=== PATIENT | female | born 1980 | race African-American/Black ===

== ENCOUNTER 2017-01-19 06:39 | Day surgery (SDC) | payer OTHER ==
[~2017-01-19 06:39] MED LIST: Lactated Ringers 1,000 ML IV SCH
--- NOTE | 2017-01-19 07:09 | PCM.PREANE ---
Preanesthetic Assessment - Anesthesia/Transfusion/Family Hx Anesthesia History: Prior Anesthesia Without Reaction Family History of Anesthesia Reaction: No Transfusion History: No Prior Transfusion(s) - Review of Systems General: No Symptoms Pulmonary: No Symptoms Cardiovascular: No Symptoms Gastrointestinal: No symptoms Neurological: No Symptoms Other: Reports: None - Physical Assessment NPO Status Date: 01/18/17 Height: 1.68 m Weight: 72.575 kg ASA Class: 1 Mental Status: Alert & Oriented x3 Airway Class: Mallampati = 1 Dentition: Reports: Normal Dentition ROM/Head Extension: Full Lungs: Clear to auscultation, Normal respiratory effort Cardiovascular: Regular Rate, Regular Rhythm - Allergies Allergies/Adverse Reactions: Allergies Allergy/AdvReac Type Severity Reaction Status Date / Time No Known Allergies Allergy Verified 12/21/15 06:08 - Blood Blood Available: No - Anesthesia Plan Pre-Op Medication Ordered: None - Acknowledgements Anesthesia Type Planned: General Anesthesia Pt an Appropriate Candidate for the Planned Anesthesia: Yes Alternatives and Risks of Anesthesia Discussed w Pt/Guardian: Yes Pt/Guardian Understands and Agrees with Anesthesia Plan: Yes Additional Comments: plan: GA/LMA PreAnesthesia Questionnaire - Past Health History Medical/Surgical History: Denies Medical/Surgical History HEENT History: Reports: None Cardiovascular History: Reports: None Respiratory History: Reports: None Gastrointestinal History: Reports: None Genitourinary History: Reports: None 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 Neurological History: Reports: None Psychiatric History: Reports: None Endocrine/Metabolic History: Reports: None Dermatologic History: Reports: None - Infectious Disease History Infectious Disease History: Reports: None - Past Surgical History Head Surgeries/Procedures: Reports: None HEENT Surgical History: Reports: None Cardiovascular Surgical History: Reports: None Respiratory Surgical History: Reports: None Female Surgical History: Reports: None Endocrine Surgical History: Reports: None Neurological Surgical History: Reports: None Musculoskeletal Surgical History: Reports: None Dermatological Surgical History: Reports: None - SUBSTANCE USE Smoking Status *Q: Never Smoker Recreational Drug Use History: No - HOME MEDS Home Medications: Home Meds . [No Known Home Meds] 12/31/16 [History] - CURRENT (IN HOUSE) MEDS Current Meds: Current Medications Hydrocodone Bitart/Acetaminophen ([place] 325-5 Mg) 1 - 2 tab PO Q4H PRN PRN Reason: Pain Lactated Ringer's (Ringers, Lactated) 1,000 mls @ 100 mls/hr IV ASDIRECTED BLAIR Cefazolin Sodium/Dextrose 1 gm (/ Premix) 50 mls @ 100 mls/hr IV ONCALL BLAIR
[2017-01-19] MEDS ORDERED: Lidocaine 1% 50 ML MDV ONE (07:20)
[2017-01-19] MEDS ORDERED: fentaNYL 100 MCG/2 ML SDV ONE ×2 (07:41→08:29)
[2017-01-19] MEDS ORDERED: Lidocaine 2% 5 ML SDV ONE (07:41)
[2017-01-19] MEDS ORDERED: Midazolam 1 MG/ML 2 ML SDV ONE (07:41)
[2017-01-19] MEDS ORDERED: Propofol 200 MG/20 ML SDV ONE (07:41)
[2017-01-19] MEDS ORDERED: ceFAZolin 1 GM in Premix Bag 1 BAG IV SCH (08:00)
[2017-01-19] MEDS ORDERED: fentaNYL 100 MCG/2 ML SDV IVPUSH PRN (08:32)
--- NOTE | 2017-01-19 08:46 | PCM.OPNOTE ---
- General Post-Op/Procedure Note Date of Surgery/Procedure: 01/19/17 Operative Procedure(s): L knee scope with chondroplasty trochlea and patella Post-Op Diagnosis: chondromalacia left knee PFJ Anesthesia Technique: General LMA Primary Surgeon: Lucie Maier Allied Health Instructor: Zuleika Stoll in mLs: 5 Condition: Good Free Text/Narrative:: tt=14 min #[id number]
[2017-01-19] MEDS: Acetaminophen/HYDROcodone 325-5 MG Tab PO PRN ×2 (10:01→11:10)
--- NOTE | 2017-01-19 10:11 | PCM.POSTAN ---
POST ANESTHESIA ASSESSMENT - MENTAL STATUS Mental Status: alert, oriented - RESPIRATORY Respiratory Status: respiratory rate WNL, airway patent - CARDIOVASCULAR CV Status: pulse rate WNL, blood pressure stable - GASTROINTESTINAL GI Status: no symptoms - POST OP HYDRATION Hydration Status: adequate & stable
[2017-01-19] MEDS ORDERED: Ondansetron 4 MG/2 ML SDV ONE (10:53)
[2017-01-19] MEDS ORDERED: Ketorolac 30 MG/ML SDV ONE (10:53)
--- NOTE | 2017-01-19 11:21 | PCM48HPAN ---
Post Anesthesia Note - EVALUATION WITHIN 48HRS OF ANESTHETIC Vital Signs in Normal Range: Yes Patient Participated in Evaluation: Yes Respiratory Function Stable: Yes Airway Patent: Yes Cardiovascular Function Stable: Yes Hydration Status Stable: Yes Pain Control Satisfactory: Yes Nausea and Vomiting Control Satisfactory: Yes Mental Status Recovered: Yes
[2017-01-19 13:41] VITALS: BP 102/64
--- NOTE | 2017-01-19 17:47 | OR ---
SURGEON: Lucie Maier MD DATE OF PROCEDURE: 01/19/2017 PREOPERATIVE DIAGNOSIS: Left knee patellar chondromalacia. POSTOPERATIVE DIAGNOSIS: Left knee patellar chondromalacia. PROCEDURE: Left knee arthroscopy with chondroplasty of the patella and trochlear groove. ASSISTANTS: 1. Elizabeth Merritt PA-C. 2. Zuleika Stoll PA-C. ANESTHESIA: General. ESTIMATED BLOOD LOSS: 5 mL. TOURNIQUET TIME: 14 minutes. COMPLICATIONS: None. DVT PROPHYLAXIS: Not indicated. IMPLANTS USED: None. BRIEF HISTORY: Karthik is a 36-year-old female, who has had complaint of persistent left knee pain and effusions. She did respond initially to a diagnostic/therapeutic injection, however, her swelling recurred. Due to her lack of response to conservative treatment, I did recommend surgical intervention. The risks and goals of procedure were discussed with the patient and were documented preoperatively. She agreed to proceed. DESCRIPTION OF PROCEDURE: The patient was properly identified and brought to the operating room. She was transferred from the OR cart and placed on the operating table in supine position. General anesthesia was administered. After adequate anesthesia was obtained, a well-padded tourniquet was applied to the left lower extremity. The left lower extremity was then prepped in standard fashion using ChloraPrep solution. It was then sterilely draped. A time-out was performed to ensure correct site and procedure. Preoperative antibiotics were given. The surgical site had been marked preoperatively. An Esmarch was used to exsanguinate the left lower extremity and the tourniquet was inflated to 250 mmHg. A lateral portal arthrotomy was established. Blunt trocar and cannula were introduced into the suprapatellar pouch. Camera, inflow, and outflow were assembled. No significant synovitis was noted. The patellofemoral joint was then visualized. Degenerative changes were noted on the undersurface of the patella as well as the trochlear groove. The patella appeared to track centrally. I then extended down the lateral and medial gutter. No loose bodies were identified. I then entered the medial compartment. A medial portal arthrotomy was established. A blunt probe was inserted. The meniscus was extensively probed. No instability or tears were noted. The joint surfaces appeared pristine. I then entered the notch. Both the ACL and PCL were visualized and probed and found to be intact. I finally entered the lateral compartment. The meniscus was again probed and no tears were noted. She had a small area of grade 2 chondromalacia along the anterior medial aspect of the lateral tibial plateau. The lateral femoral condyle showed no degenerative findings. I then re-entered the notch. There was an area of grade 2 to grade 3 chondromalacia along the inferior pole of the patella laterally. No loose fragments were noted here. There was an area with loose fragments located over the superior medial aspect of the patella, which was treated with chondroplasty. The trochlear groove was also visualized. The area of wear measured approximately 7 mm x 15 mm. There were loose cartilaginous fragments. A 4.0 shaver was used to debride this area. It was again probed and the remainder of the cartilage appeared stable. The central portion of the trochlear groove showed grade 3 degenerative findings. Instruments were then removed from the knee. The portal sites were closed with 3-0 nylon. Lidocaine 1% was injected along the portal tracts. Xeroform gauze was placed over the wound and a bulky dressing was applied. The tourniquet was then deflated. She was awakened from her anesthetic and transferred back to the operating room cart. She was brought to recovery room in stable condition. All needle and sponge counts were correct. SHANIQUA / KEVON /[id number]
== END 2017-01-19 12:00 | disposition home or self-care (01) ==
LOC: MW.SDS 06:39
PROVIDERS: ATTEND Orthopaedic Surgery
DX: M22.42 Chondromalacia patellae, left knee (principal); M25.462 Effusion, left knee
CPT/HCPCS: 29877; 81025; A9270; J0690; J1885; J2250; J2405; J3010; J7120; 01400; 88304; J2704

== ENCOUNTER 2017-09-18 08:59 | Emergency (ER) | payer OTHER ==
[2017-09-18 09:10] VITALS: BP 104/69
[2017-09-18] MEDS ORDERED: Sodium Chloride 0.9% 10 ML Syringe FLUSH PRN (09:24)
[2017-09-18] MEDS ORDERED: Sodium Chloride 0.9% 2.5 ML Syringe FLUSH PRN (09:24)
--- NOTE | 2017-09-18 09:24 | EDM.PDOC ---
ED HPI GENERAL MEDICAL PROBLEM - General Chief Complaint: Genitourinary Problem Stated Complaint: DIZZY Time Seen by Provider: 09/18/17 09:20 Source of Information: Reports: Patient History Limitations: Reports: No Limitations - History of Present Illness INITIAL COMMENTS - FREE TEXT/NARRATIVE: History of present illness: []Patient has been excessively thirsty and urinating more than normal for the past 3 days. She has been complaining of dizziness and feels very weak. She denies any pain, fevers, nausea or vomiting. Patient is not diabetic and has no family history of diabetes. Review of systems: As per history of present illness and below otherwise all systems reviewed and negative. Past medical history: As per history of present illness and as reviewed below otherwise noncontributory. Surgical history: As per history of present illness and as reviewed below otherwise noncontributory. Social history: No reported history of drug or alcohol abuse. Family history: As per history of present illness and as reviewed below otherwise noncontributory. Physical exam: General: Well developed, well nourished in NAD HEENT: Atraumatic, normocephalic, pupils reactive, negative for conjunctival pallor or scleral icterus, mucous membranes moist, throat clear, neck supple, nontender, trachea midline. Lungs: Clear to auscultation, breath sounds equal bilaterally, chest nontender. Heart: S1S2, regular, negative for clicks, rubs, or JVD. Abdomen: Soft, nondistended, nontender. Negative for masses or hepatosplenomegaly. Negative for costovertebral tenderness. Pelvis: Stable nontender. Genitourinary: Deferred. Rectal: Deferred. Extremities: Atraumatic, negative for cords or calf pain. Neurovascular unremarkable. Neuro: Awake, alert, oriented. Cranial nerves II through XII unremarkable. Cerebellum unremarkable. Motor and sensory unremarkable throughout. Exam nonfocal. Diagnostics: []Labs and urine all negative Therapeutics: []Meclizine given with relief of symptoms Impression: []Polydipsia, polyuria, dizziness unknown etiology Plan: []Follow-up primary care further diabetic testing Definitive disposition and diagnosis as appropriate pending reevaluation and review of above. - Related Data Allergies Allergy/AdvReac Type Severity Reaction Status Date / Time No Known Allergies Allergy Verified 09/18/17 09:10 Home Meds: Home Meds . 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 Musculoskeletal History: Reports: Arthritis Neurological History: Reports: None Psychiatric History: Reports: None Endocrine/Metabolic History: Reports: None Dermatologic History: Reports: None - Infectious Disease History Infectious Disease History: Reports: Chicken Pox - Past Surgical History Head Surgeries/Procedures: Reports: None HEENT Surgical History: Reports: None Cardiovascular Surgical History: Reports: None Respiratory Surgical History: Reports: None Female Surgical History: Reports: None Endocrine Surgical History: Reports: None Neurological Surgical History: Reports: None Musculoskeletal Surgical History: Reports: None Dermatological Surgical History: Reports: None Social & Family History - Family History Cardiac: Reports: None Respiratory: Reports: None - Tobacco Use Smoking Status *Q: Never Smoker - Caffeine Use Caffeine Use: Reports: Soda - Recreational Drug Use Recreational Drug Use: No Drug Use in Last 12 Months: No ED ROS GENERAL - Review of Systems Review Of Systems: See Below (See history of present illness) ED EXAM, GENERAL - Physical Exam Exam: See Below (See history of present illness) Course - Vital Signs Last Recorded V/S: Last Vital Signs Temp 97.9 F 09/18/17 09:08 Pulse 65 09/18/17 09:08 Resp 12 09/18/17 09:08 BP 104/69 09/18/17 09:08 Pulse Ox 100 09/18/17 09:08 - Orders/Labs/Meds Orders: Active Orders 24 hr Category Date Time Status Sodium Chloride 0.9% [Saline Flush] Med 09/18/17 09:24 Active 10 ml FLUSH ASDIRECTED PRN Sodium Chloride 0.9% [Saline Flush] Med 09/18/17 09:24 Active 2.5 ml FLUSH ASDIRECTED PRN Saline Lock Insert [OM.PC] Stat Oth 09/18/17 09:24 Ordered Medication Orders Sodium Chloride (Saline Flush) 10 ml FLUSH ASDIRECTED PRN PRN Reason: Keep Vein Open Sodium Chloride (Saline Flush) 2.5 ml FLUSH ASDIRECTED PRN PRN Reason: Keep Vein Open Labs: Laboratory Tests 09/18/17 09/18/17 09/18/17 Range/Units 09:12 09:12 09:36 WBC 3.65 L (4.0-11.0) K/uL RBC 4.17 L (4.30-5.90) M/uL Hgb 12.7 (12.0-16.0) g/dL Hct 37.7 (36.0-46.0) % MCV 90.4 (80.0-98.0) fL MCH 30.5 (27.0-32.0) pg MCHC 33.7 (31.0-37.0) g/dL RDW Std Deviation 41.5 (28.0-62.0) fl RDW Coeff of [place]ette 13 (11.0-15.0) % Plt Count 173 (150-400) K/uL MPV 10.60 (7.40-12.00) fL Neut % (Auto) 37.2 L (48.0-80.0) % Lymph % (Auto) 52.1 H (16.0-40.0) % [place] % (Auto) 9.9 (0.0-15.0) % Eos % (Auto) 0.5 (0.0-7.0) % Baso % (Auto) 0.3 (0.0-1.5) % Neut # (Auto) 1.4 (1.4-5.7) K/uL Lymph # (Auto) 1.9 (0.6-2.4) K/uL [place] # (Auto) 0.4 (0.0-0.8) K/uL Eos # (Auto) 0.0 (0.0-0.7) K/uL Baso # (Auto) 0.0 (0.0-0.1) K/uL Nucleated RBC % 0.0 /100WBC Nucleated RBCs # 0 K/uL Sodium (136-146) mmol/L Potassium (3.5-5.1) mmol/L Chloride (98-110) mmol/L Carbon Dioxide (21-31) mmol/L BUN (6.0-23.0) mg/dL Creatinine (0.6-1.5) mg/dL Est Cr Clr Drug Dosing mL/min Estimated GFR (MDRD) ml/min Glucose (60-110) mg/dL Calcium (8.8-10.8) mg/dL Total Bilirubin (0.1-1.5) mg/dL AST (5-40) IU/L ALT (8-54) IU/L Alkaline Phosphatase (40-150) Total Protein (6.0-8.0) g/dL Albumin (3.5-5.0) g/dL Globulin (2.0-3.5) g/dL Albumin/Globulin Ratio (1.3-2.8) Urine Color YELLOW Urine Appearance CLEAR Urine pH 7.5 (5.0-8.0) Ur Specific [place] 1.010 (1.001-1.035) Urine Protein NEGATIVE (NEGATIVE) mg/dL Urine Glucose (UA) NEGATIVE (NEGATIVE) mg/dL Urine Ketones NEGATIVE (NEGATIVE) mg/dL Urine Occult Blood TRACE-INTACT (NEGATIVE) Urine Nitrite NEGATIVE (NEGATIVE) Urine Bilirubin NEGATIVE (NEGATIVE) Urine Urobilinogen 0.2 (<2.0) EU/dL Ur Leukocyte Esterase NEGATIVE (NEGATIVE) Urine RBC 0-1 (0-2/HPF) Urine WBC 0-1 (0-5/HPF) Ur Epithelial Cells RARE (NONE-FEW) Urine Bacteria RARE (NEGATIVE) Urine HCG, Qual NEGATIVE (NEGATIVE) 09/18/17 Range/Units 09:36 WBC (4.0-11.0) K/uL RBC (4.30-5.90) M/uL Hgb (12.0-16.0) g/dL Hct (36.0-46.0) % MCV (80.0-98.0) fL MCH (27.0-32.0) pg MCHC (31.0-37.0) g/dL RDW Std Deviation (28.0-62.0) fl RDW Coeff of Antonette (11.0-15.0) % Plt Count (150-400) K/uL MPV (7.40-12.00) fL Neut % (Auto) (48.0-80.0) % Lymph % (Auto) (16.0-40.0) % [place] % (Auto) (0.0-15.0) % Eos % (Auto) (0.0-7.0) % Baso % (Auto) (0.0-1.5) % Neut # (Auto) (1.4-5.7) K/uL Lymph # (Auto) (0.6-2.4) K/uL [place] # (Auto) (0.0-0.8) K/uL Eos # (Auto) (0.0-0.7) K/uL Baso # (Auto) (0.0-0.1) K/uL Nucleated RBC % /100WBC Nucleated RBCs # K/uL Sodium 139 (136-146) mmol/L Potassium 3.5 (3.5-5.1) mmol/L Chloride 106 (98-110) mmol/L Carbon Dioxide 27 (21-31) mmol/L BUN 8 (6.0-23.0) mg/dL Creatinine 0.8 (0.6-1.5) mg/dL Est Cr Clr Drug Dosing 91.88 mL/min Estimated GFR (MDRD) > 60.0 ml/min Glucose 74 (60-110) mg/dL Calcium 8.3 L (8.8-10.8) mg/dL Total Bilirubin 1.0 (0.1-1.5) mg/dL AST 20 (5-40) IU/L ALT 19 (8-54) IU/L Alkaline Phosphatase 39 L (40-150) Total Protein 7.0 (6.0-8.0) g/dL Albumin 4.1 (3.5-5.0) g/dL Globulin 2.9 (2.0-3.5) g/dL Albumin/Globulin Ratio 1.4 (1.3-2.8) Urine Color Urine Appearance Urine pH (5.0-8.0) Ur Specific [place] (1.001-1.035) Urine Protein (NEGATIVE) mg/dL Urine Glucose (UA) (NEGATIVE) mg/dL Urine Ketones (NEGATIVE) mg/dL Urine Occult Blood (NEGATIVE) Urine Nitrite (NEGATIVE) Urine Bilirubin (NEGATIVE) Urine Urobilinogen (<2.0) EU/dL Ur Leukocyte Esterase (NEGATIVE) Urine RBC (0-2/HPF) Urine WBC (0-5/HPF) Ur Epithelial Cells (NONE-FEW) Urine Bacteria (NEGATIVE) Urine HCG, Qual (NEGATIVE) Meds: Medications Generic Name Dose Route Start Last Admin Trade Name Freq PRN Reason Stop Dose Admin Sodium Chloride 10 ml 09/18/17 09:24 Saline Flush FLUSH ASDIRECTED PRN Keep Vein Open Sodium Chloride 2.5 ml 09/18/17 09:24 Saline Flush FLUSH ASDIRECTED PRN Keep Vein Open Discontinued Medications Generic Name Dose Route Start Last Admin Trade Name Evelyn PRN Reason Stop Dose Admin Meclizine HCl 25 mg 09/18/17 09:25 09/18/17 09:50 Antivert PO 09/18/17 09:26 25 mg ONETIME ONE Administration Departure - Departure Time of Disposition: 10:26 Disposition: Home, Self-Care 01 Condition: Good Clinical Impression: Polyuria, Dizziness - Discharge Information Referrals: PCP,None [Primary Care Provider] - Katiuska Pineda MD [Resident] - Forms: ED Department Discharge Additional Instructions: The following information is given to patients seen in the emergency department who are being discharged to home. This information is to outline your options for follow-up care. We provide all patients seen in our emergency department with a follow-up referral. The need for follow-up, as well as the timing and circumstances, are variable depending upon the specifics of your emergency department visit. If you don't have a primary care physician on staff, we will provide you with a referral. We always advise you to contact your personal physician following an emergency department visit to inform them of the circumstance of the visit and for follow-up with them and/or the need for any referrals to a consulting specialist. The emergency department will also refer you to a specialist when appropriate. This referral assures that you have the opportunity for follow-up care with a specialist. All of these measure are taken in an effort to provide you with optimal care, which includes your follow-up. Under all circumstances we always encourage you to contact your private physician who remains a resource for coordinating your care. When calling for follow-up care, please make the office aware that this follow-up is from your recent emergency room visit. If for any reason you are refused follow-up, please contact the [facility] Emergency Department at and asked to speak to the emergency department charge nurse. Follow-up with primary care - My Orders Last 24 Hours: My Active Orders 09/18/17 09:24 Sodium Chloride 0.9% [Saline Flush] 10 ml FLUSH ASDIRECTED PRN Sodium Chloride 0.9% [Saline Flush] 2.5 ml FLUSH ASDIRECTED PRN Saline Lock Insert [OM.PC] Stat - Assessment/Plan Last 24 Hours: My Active Orders 09/18/17 09:24 Sodium Chloride 0.9% [Saline Flush] 10 ml FLUSH ASDIRECTED PRN Sodium Chloride 0.9% [Saline Flush] 2.5 ml FLUSH ASDIRECTED PRN Saline Lock Insert [OM.PC] Stat
[2017-09-18] MEDS ORDERED: Meclizine 25 MG Tab PO ONE (09:25)
[2017-09-18 10:12] LABS: CHLORIDE,CL 106 mmol/L (98-110); SODIUM,NA 139 mmol/L (136-146)
== END 2017-09-18 11:00 | disposition home or self-care (01) ==
LOC: MW.ED 08:59
DX: R42 Dizziness and giddiness (principal); R35.8 Other polyuria; R63.1 Polydipsia
CPT/HCPCS: 36415; 80053; 81001; 81025; 85025; 99284; A9270; 99283

== ENCOUNTER 2020-04-24 16:56 | Emergency (ER) | payer OTHER ==
[2020-04-24 17:45] LABS: BLOOD UREA NITROGEN,BUN 10 mg/dL (7.0-18.0); CARBON DIOXIDE,CO2 24.5 mmol/L (21.0-32.0); CHLORIDE,CL 104 mmol/L (98-107); GLUCOSE RANDOM 89 mg/dL (74-106); POTASSIUM,K 3.4 mmol/L (3.5-5.1); SODIUM,NA 139 mmol/L (136-145)
--- NOTE | 2020-04-24 18:21 | EDM.PDOC ---
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 Patient's last menstrual period was March 16, 2020 and is approximately 5 weeks . Over the past 2 weeks she has had vaginal bleeding which has fluctuated in intensity. She has been seeing her [facility] W[facility]ER OPERATOR, particularly today she was seen in the clinic. The provider was doing a bedside ultrasound and could not rule out an ectopic . They recommended she come to the emergency room for evaluation. Patient states that she has had intermittent vaginal bleeding, occasionally passing clots. Nothing in particular was worse today that prompted her to come to the emergency room/clinic for evaluation other than the bleeding has not stopped. She has had some generalized abdominal pain, states location alternates from left/right/midline. She also has some low back pain. 5, para 2. She had a miscarriage approximately a year ago at 5 to 6 weeks. Patient denies any fever, chills, headache, change in vision, syncope or near syncope. Denies any chest pain, back pain, shortness of breath or cough. Denies any injury, trauma or falls. Patient has been eating and drinking appropriately. The women's health clinic provider states that she had done a bedside ultrasound. CBC was normal. Waiting on the quantitative hCG. She also did a pelvic exam which she reports left adnexal discomfort, positive cervical motion tenderness and some malodorous discharge from the cervix. The provider did do a gonorrhea and chlamydia screening, these are send outs and will not have results for few days. Review of systems: As per history of present illness and below otherwise all systems reviewed and negative. Past medical history: As per history of present illness and as reviewed below otherwise noncontributory. Surgical history: As per history of present illness and as reviewed below otherwise noncontributory. Social history: See social history for further information Family history: As per history of present illness and as reviewed below otherwise noncontributory. Physical exam: General: Well developed and well nourished. Alert and orientated x 3. Nontoxic i n appearance and in no acute distress. Vital signs are stable and have been reviewed by me. Nursing notes were reviewed. HEENT: Atraumatic, normocephalic, pupils equal and reactive bilaterally, negat alexandrea for conjunctival pallor or scleral icterus, mucous membranes moist, TMs normal bilaterally, throat clear, neck supple, nontender, trachea midline. No drooling or trismus noted. No meningeal signs. No hot potato voice noted. Lungs: Clear to auscultation, breath sounds equal bilaterally, chest nontender. Normal work of breathing, no accessory muscles used. Heart: S1S2, regular rate and rhythm without overt murmur Abdomen: Soft, nondistended, nontender. Negative for masses or hepatosplenomegaly. Negative for costovertebral tenderness. Pelvis: Stable nontender. Skin: Intact, warm, dry. No lesions or rashes noted. Hematologic: No petechiae or purpra. Mucosa appropriate color and normal nail bed color and refill. Extremities: Atraumatic, moves all extremities per self without difficulty or deficits, negative for cords or calf pain. Neurovascular unremarkable. Neuro: Awake, alert, oriented. Cranial nerves II through XII unremarkable. Cerebellum unremarkable. Motor and sensory unremarkable throughout. Exam nonfocal. Psychiatric: Mood and affect are appropriate. Normal thought process. Answering questions appropriately. Notes: Please note that blood was drawn at the clinic, several of the labs were added on as this was just recently drawn, to avoid a duplicate charge for the patient. I did offer to give the patient something for pain at this time, rating it 9/10. She declines. Vital signs are stable. Ultrasound shows an intrauterine gestational sac with a faint yolk sac. Estimated gestational size is 7 weeks and 2 days. No fetus is visualized at this time. Viability cannot be confirmed at this time. I did call TASHA Shields, who is convinced this is a blighted ovum, he has no concern for a tubal at this time. He would like the patient's quantitative hCG repeated on and would like to see the patient back on . Initially he did want Cytotec for this patient, but will wait to this prescribed by him when he see's her in the clinic. Patient's quantitative hCG is 39,081. She does have a urinary tract infection with +3 bacteria and positive nitrates. We will give Cipro. We discussed signs and symptoms that would prompt them to return to the Emergency Department. Medication, follow up and supportive care measures were reviewed and discussed. Voices understanding and is agreeable to plan of care. Denies any further questions or concerns at this time. Diagnostics: CBC, CMP, UA, quantitative hCG, transvaginal ultrasound, AB/RH Therapeutics: Cipro Prescription: Cipro, Mccormick, outpatient quantitative hCG Impression: Threatened UTI Plan: 1. Your lab work shows a bladder infection, please take the antibiotic as prescribed. Today's quantitative hCG was 39,081. This lab needs to be redrawn on (04/26/20) in outpatient lab to see if this number is going down. Call Sawyer's office tomorrow to set up a follow up appointment for re- evaluation. 2. Pelvic rest until cleared by your OBGYN (no tampons, sex, etc...) 3. Tylenol as needed for pain management. Mccormick for moderate to severe pain. This medication may cause drowsiness so do not take it while driving or needing to be functioning outside of the house. 4. As we discussed if your symptoms become worse (increased abdominal pain, heavier vaginal bleeding) or new symptoms develop (lightheaded, dizziness, fever/chills) please return to the emergency room for reevaluation. Definitive disposition and diagnosis as appropriate pending reevaluation and review of above. pelvic area/lower back Pain Score (Numeric/FACES): 10 - Related Data Allergies Allergy/AdvReac Type Severity Reaction Status Date / Time No Known Allergies Allergy Verified 04/24/20 17:06 Home Meds: Home Meds Ciprofloxacin [Ciprofloxacin HCl] 500 mg PO BID 5 Days #10 tab 04/24/20 [Rx] Hydrocodone/Acetaminophen [Hydrocodone-Acetamin 5-325 mg] 1 each PO Q4HR #10 t ablet 04/24/20 [Rx] Past Medical History - Past Health History Medical/Surgical History: Denies Medical/Surgical History HEENT History: Reports: None Cardiovascular History: Reports: None Respiratory History: Reports: None Gastrointestinal History: Reports: None Genitourinary History: Reports: None 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: Reports: 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 Musculoskeletal History: Reports: Arthritis Neurological History: Reports: None Psychiatric History: Reports: None Endocrine/Metabolic History: Reports: None Dermatologic History: Reports: None - Infectious Disease History Infectious Disease History: Reports: Chicken Pox - Past Surgical History Head Surgeries/Procedures: Reports: None HEENT Surgical History: Reports: None Cardiovascular Surgical History: Reports: None Respiratory Surgical History: Reports: None Female Surgical History: Reports: None Endocrine Surgical History: Reports: None Neurological Surgical History: Reports: None Musculoskeletal Surgical History: Reports: None, Other (See Below) Other Musculoskeletal Surgeries/Procedures:: left knee surgery Dermatological Surgical History: Reports: None Social & Family History - Family History Cardiac: Reports: None Respiratory: Reports: None - Tobacco Use Smoking Status *Q: Never Smoker - Caffeine Use Caffeine Use: Reports: None - Recreational Drug Use Recreational Drug Use: No ED ROS GENERAL - Review of Systems Review Of Systems: Comprehensive ROS is negative, except as noted in HPI. ED EXAM - Physical Exam Exam: See Below (See dictation) Course - Vital Signs Last Recorded V/S: Last Vital Signs Temp 98.7 F 04/24/20 17:06 Pulse 78 04/24/20 17:06 Resp 16 04/24/20 17:06 BP 121/76 04/24/20 17:06 Pulse Ox 100 04/24/20 17:06 - Orders/Labs/Meds Labs: Laboratory Tests 04/24/20 04/24/20 04/24/20 Range/Units 17:13 17:17 18:13 INR 1.05 Sodium 139 (136-145) mmol/L Potassium 3.4 L (3.5-5.1) mmol/L Chloride 104 (98-107) mmol/L Carbon Dioxide 24.5 (21.0-32.0) mmol/L BUN 10 (7.0-18.0) mg/dL Creatinine 0.8 (0.6-1.0) mg/dL Est Cr Clr Drug Dosing TNP Estimated GFR (MDRD) > 60.0 ml/min Glucose 89 (74-106) mg/dL Calcium 8.4 L (8.5-10.1) mg/dL Total Bilirubin 0.8 (0.2-1.0) mg/dL AST 15 (15-37) IU/L ALT 16 (14-63) IU/L Alkaline Phosphatase 34 L (46-116) U/L Total Protein 6.3 L (6.4-8.2) g/dL Albumin 3.5 (3.4-5.0) g/dL Globulin 2.8 (2.6-4.0) g/dL Albumin/Globulin Ratio 1.2 (0.9-1.6) Urine Color YELLOW Urine Appearance SLT CLOUDY Urine pH 8.5 H (5.0-8.0) Ur Specific Galloway 1.015 (1.001-1.035) Urine Protein TRACE H (NEGATIVE) mg/dL Urine Glucose (UA) NEGATIVE (NEGATIVE) mg/dL Urine Ketones NEGATIVE (NEGATIVE) mg/dL Urine Occult Blood NEGATIVE (NEGATIVE) Urine Nitrite POSITIVE H (NEGATIVE) Urine Bilirubin NEGATIVE (NEGATIVE) Urine Urobilinogen 1.0 (<2.0) EU/dL Ur Leukocyte Esterase NEGATIVE (NEGATIVE) Urine RBC 0-1 (0-2/HPF) Urine WBC 1-2 (0-5/HPF) Ur Epithelial Cells RARE (NONE-FEW) Urine Bacteria 3+ H (NEGATIVE) Meds: Medications Discontinued Medications Generic Name Dose Route Start Last Admin Trade Name Evelyn PRN Reason Stop Dose Admin Ciprofloxacin 500 mg 04/24/20 19:46 Ciprofloxacin Hcl PO 04/24/20 19:47 ONETIME ONE Departure - Departure Time of Disposition: 19:40 Disposition: Home, Self-Care 01 Clinical Impression: Threatened in first trimester UTI (urinary tract infection) Qualifiers: Urinary tract infection type: site unspecified Hematuria presence: with hematur ia Qualified Code(s): N39.0 - Urinary tract infection, site not specified - Discharge Information Prescriptions: Ciprofloxacin [Ciprofloxacin HCl] 500 mg PO BID 5 Days #10 tab Hydrocodone/Acetaminophen [Hydrocodone-Acetamin 5-325 mg] 1 each PO Q4HR #10 tablet Instructions: Urinary Tract Infection, Adult, [id number], Threatened Miscarriage, [id number] Referrals: Chrissy Lawler MD [Primary Care Provider] - Forms: ED Department Discharge Additional Instructions: The following information is given to patients seen in the emergency department who are being discharged to home. This information is to outline your options fo r follow-up care. We provide all patients seen in our emergency department with a follow-up referral. The need for follow-up, as well as the timing and circumstances, are variable depending upon the specifics of your emergency department visit. If you don't have a primary care physician on staff, we will provide you with a referral. We always advise you to contact your personal physician following an emergency department visit to inform them of the circumstance of the visit and for follow-up with them and/or the need for any referrals to a consulting specialist. The emergency department will also refer you to a specialist when appropriate. This referral assures that you have the opportunity for follow-up care with a specialist. All of these measure are taken in an effort to provide you with optimal care, which includes your follow-up. Under all circumstances we always encourage you to contact your private physician who remains a resource for coordinating your care. When calling for follow-up care, please make the office aware that this follow-up is from your recent emergency room visit. If for any reason you are refused follow-up, please contact the [facility] at and asked to speak to the emergency department charge nurse. [facility] [address] [place] [id number] [facility] [address] [place] [id number] Thank you for choosing the [facility] emergency department in [place] for your medical needs today. It was a pleasure caring for you. Today you were seen in the emergency department for additional bleeding and abdominal pain in . 1. Your lab work shows a bladder infection, please take the antibiotic as prescribed. Increase your oral fluids. Today's quantitative hCG was 39,081. T his lab needs to be redrawn on (04/26/20) in outpatient lab to see if this number is going down. Call Sawyer's office tomorrow to set up a follow up appointment for re-evaluation. 2. Pelvic rest until cleared by your OBGYN (no tampons, sex, etc...) 3. Tylenol as needed for pain management. Mccormick for moderate to severe pain. This medication may cause drowsiness so do not take it while driving or needing to be functioning outside of the house. 4. As we discussed if your symptoms become worse (increased abdominal pain, heavier vaginal bleeding) or new symptoms develop (lightheaded, dizziness, fever/chills) please return to the emergency room for reevaluation. Sepsis Event Note (ED) - Evaluation Sepsis Screening Result: No Definite Risk - Focused Exam Vital Signs: Vital Signs Temp Pulse Resp BP Pulse Ox 04/24/20 17:06 98.7 F 78 16 121/76 100
--- NOTE | 2020-04-24 18:54 | US ---
INDICATION: with bleeding and cramping. TECHNIQUE: Ultrasound OB pelvis transvaginal. Real-time byrne-scale imaging of the pelvis was performed. COMPARISON: None FINDINGS: Sonographic imaging demonstrates an intrauterine gestation. Gestational sac has a mean sac diameter of 2.21 cm which corresponds to a 7 week 2 day gestational age. A faint yolk sac is present. No fetus visualized. No sign of hemorrhage. A 3.5 cm fibroid is in the left uterus. The ovaries are of normal size. There are no suspicious fluid collections noted in the cul-de-sac. IMPRESSION: There is an intrauterine gestational sac with a faint yolk sac. Estimated ultrasound age by gestational sac size is 7 weeks 2 days. No fetus visualized at this time. Viability cannot be confirmed at this time. Short-term follow-up beta HCG levels and possibly follow up ultrasound are recommended for further assessment. Dictated by Jonathan Navarro MD @ Apr 24 2020 6:46PM Signed by Dr. Jonathan Navarro @ Apr 24 2020 6:53PM
[2020-04-24] MEDS ORDERED: Ciprofloxacin 500 MG Tab PO ONE (19:46)
--- NOTE | 2020-04-24 19:48 | PCM.SN.2 ---
- Free Text/Narrative Note: The patient was presented to me by the mid-level provider, who sees patients independently as a licensed independent practitioner by [facility] and [facility] law. Up until the time that I was consulted and assumed supervision, the mid-level provider had been solely and independently caring for this patient and they were responsible for all aspects of care including performing the history and physical, formulating medical decision making, ordering medications, and ordering and evaluating testing. I have personally and independently seen and evaluated the patient at bedside and, if available, have spoken with the with the family. I agree with the history, physical, medical decision making, and plan of treatment as documented by the mid-level provider. I have performed the medical decision making for this patient, including assessing the results of all diagnostic testing and I have instructed the mid-level provider to document the results and carry through with the treatment plan that I deemed appropriate. If needed, any other comments, a focused physical examination, or my own medical decision making are documented below. In brief, this is a 40-year-old female with no past medical history, presenting for lower abdominal pain along with 2 weeks of intermittent vaginal bleeding and foul-smelling discharge with a positive test. LMP was approximately 5 weeks ago. Seen in lead infrastructure architect clinic today where she had a positive urine test. Bedside ultrasound by the lead infrastructure architect did not demonstrate an IUP so she was sent to the emergency department for evaluation of possible ectopic or endometritis. Upon my evaluation, the patient denies any abdominal pain although she does have LLQ pain with standing or ambulating and does have some mild left lower quadrant tenderness. She is hemodynamically stable at the moment. Not tachycardic or hypotensive. She is afebrile. Normal INR, normal electrolytes. Urinalysis shows positive nitrites, 3+ bacteria. Reviewed CBC from the clinic showing a hemoglobin of 11.3, normal platelets and white blood cell count. We obtained a transvaginal pelvic ultrasound demonstrating a gestational sac estimated at 7-week 2 days and a faint yolk sac with no visualized fetus or sign of hemorrhage. Serum beta hCG from the clinic was 39,081. KARLENE Chen did discuss with on-call OB Dr. Estrada. Presentation seems consistent with a blighted ovum given lack of a viable fetus on US with the degree of her beta-HCG level. Dr. Estrada did suggest oral Cytotec but I explained that I would feel more comfortable if he or his obstetric colleagues prescribe this medication after evaluating the patient in the outpatient setting, and he is agreeable to this plan. We will plan to have the patient follow-up with [facility] in the next 1 to 3 days for reevaluation. She will be given strict return precautions for worsening bleeding or pain or any other new or concerning symptoms. She will also be treated for cystitis with oral antibiotics. She was discharged in good condition.
[2020-04-24 20:55] VITALS: BP 110/65; PULSE 72
== END 2020-04-24 20:01 | disposition home or self-care (01) ==
LOC: MW.ED 16:56
DX: O20.0 Threatened abortion (principal); O23.31 Infections of other parts of urinary tract in pregnancy, first trimester; O99.89 Other specified diseases and conditions complicating pregnancy, childbirth and the puerperium; R31.9 Hematuria, unspecified; Z3A.01 Less than 8 weeks gestation of pregnancy
CPT/HCPCS: 36415; 76801; 76801-26; 80053; 81001; 85610; 99284; 99284-25

== ENCOUNTER 2021-01-11 05:47 | Emergency (ER) | payer OTHER ==
[2021-01-11 06:25] VITALS: BP 114/78; PULSE 67
[2021-01-11] MEDS ORDERED: Ketorolac 15 MG/ML SDV IVPUSH ONE (06:26)
[2021-01-11] MEDS ORDERED: Ketorolac 30 MG/ML SDV IM STA (06:31)
[2021-01-11] MEDS ORDERED: Cephalexin 500 MG Cap PO ONE (06:32)
--- NOTE | 2021-01-11 06:39 | EDM.PDOC ---
<Jarrett Rosenberg - Last Filed: 01/11/21 07:05> ED HPI GENERAL MEDICAL PROBLEM - General Chief Complaint: Genitourinary Problem Stated Complaint: FREQUENT URINATION Time Seen by Provider: 01/11/21 06:02 - History of Present Illness INITIAL COMMENTS - FREE TEXT/NARRATIVE: CHIEF COMPLAINT(S): Increased urination HISTORY OF PRESENT ILLNESS: This is a 40-year-old woman without any significant past medical history who comes to the emergency department with a chief complaint of increased urination. The patient states that for the last 5 days she has been experiencing increased urination. She states that it is gotten so bad that she has to wake up 4-5 times a night. She does not have any dysuria but states that she does have pressure in the suprapubic region. She rates her pain as night of 10. She denies any radiation his pain however she states that starting yesterday she started to experience right flank pain which radiates anteriorly. She initially thought that this was due to muscle strain as she does workout every day. She has not yet tried any pain medication therefore there are no relieving factors. She denies any change in odor or color of her urine. She denies any history of nephrolithiasis, vaginal discharge, hematuria. She states that she is currently on her period so she is spotting. She denies any nausea or vomiting. She denies any fevers or chills. REVIEW OF SYSTEMS: Constitutional: Denies fever, chills. Eyes: Denies eye pain Ears, Nose, Mouth, & Throat: Denies earache Cardiovascular: Denies chest pain Respiratory: Denies shortness of breath Gastrointestinal: Denies Nausea, vomiting, diarrhea, hematochezia. Genitourinary: Positive for suprapubic tenderness and left flank pain. Denies hematuria, dysuria, vaginal discharge Skin:Denies a rash MSK: Denies joint pain Neurological: Denies blurred vision Psychiatric: Denies depression PAST MEDICAL HISTORY: As per history of present illness and as reviewed below otherwise noncontributory. SURGICAL HISTORY: As per history of present illness and as reviewed below otherwise noncontributory. LMP: Currently on her period SOCIAL HISTORY: As per history of present illness and as reviewed below other byers noncontributory. FAMILY HISTORY: As per history of present illness and as reviewed below otherwise noncontributory. EXAMINATION OF ORGAN SYSTEMS/BODY AREAS: Constitutional: Blood pressure is 114/78, heart rate 67, respiratory rate 18 with an oxygen saturation 10 percent on room air. Temperature 36.8 General: Overall well-appearing woman who is in no acute distress. Psychiatric: Appropriate mood and affect. Eyes: No scleral icterus or conjunctival erythema ENMT: Moist mucous membranes. No pharyngeal erythema Cardiovascular: Regular, rate, and rhythm. No gallops, murmurs, or rubs. B ilateral upper extremity pulses symmetric and intact. No peripheral edema. No JVD. Respiratory: Lungs clear to auscultation bilaterally. No wheezes, rales, or rhonchi. Gastrointestinal: Soft, non-tender, non-distended. Normoactive bowel sounds there is left lower quadrant and left flank tenderness. No rebound or guarding. Genitourinary: Suprapubic tenderness to palpation. Left CVA tenderness musculoskeletal: Normal range of motion. Skin: No lesions or abrasions. Neurological: Alert, GCS 15 MEDICAL DECISION MAKING AND COURSE IN THE ED WITH INTERPRETATION/REVIEW OF DIAGNOSTIC STUDIES: This is a 40-year-old woman without any significant past medical history who comes to the emergency department with 5 days of suprapubic pressure and increased urination with development of left flank pain. At this time I am concerned about the possibility of pyelonephritis, cystitis, nephrolithiasis. We will provide the patient with Toradol for pain relief. Will obtain CBC, BMP, and urinalysis. We will obtain a CT abdomen pelvis without contrast for further evaluation for nephrolithiasis. Urinalysis was a clean catch and was moderate for leukocyte esterase, positive for nitrites, and large for blood. Interpretation: Positive Urine culture was sent. We started the patient on Keflex while awaiting for further results. Patient was signed out to oncoming day team physician pending laboratories and CT results DISPOSITION: Patient was signed out to oncoming day team physician pending labs and CT read CONDITION: Fair PROCEDURES: None FINAL IMPRESSION(S)/DIAGNOSES: 1. Acute left flank pain 2. Acute urinary tract infection Jarrett Rosenberg M.D. 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 Musculoskeletal History: Reports: Arthritis Neurological History: Reports: None Psychiatric History: Reports: None Endocrine/Metabolic History: Reports: None Dermatologic History: Reports: None - Infectious Disease History Infectious Disease History: Reports: Chicken Pox - Past Surgical History Head Surgeries/Procedures: Reports: None HEENT Surgical History: Reports: None Cardiovascular Surgical History: Reports: None Respiratory Surgical History: Reports: None Female Surgical History: Reports: None Endocrine Surgical History: Reports: None Neurological Surgical History: Reports: None Musculoskeletal Surgical History: Reports: None, Other (See Below) Other Musculoskeletal Surgeries/Procedures:: left knee surgery Dermatological Surgical History: Reports: None Social & Family History - Family History Cardiac: Reports: None Respiratory: Reports: None - Tobacco Use Tobacco Use Status *Q: Never Tobacco User - Caffeine Use Caffeine Use: Reports: None - Recreational Drug Use Recreational Drug Use: No ED ROS GENERAL - Review of Systems Review Of Systems: See Below ED EXAM, RENAL/ - Physical Exam Exam: See Below Departure - Departure Disposition: Home, Self-Care 01 Clinical Impression: UTI (urinary tract infection) Qualifiers: Urinary tract infection type: site unspecified Hematuria presence: with hematuria Qualified Code(s): N39.0 - Urinary tract infection, site not specified - Discharge Information Prescriptions: Ciprofloxacin HCl [Cipro] 500 mg PO BID 7 Days #14 tablet Instructions: Urinary Tract Infection, Adult, [id number] Referrals: Chrissy Lawler MD [Primary Care Provider] - Forms: ED Department Discharge Additional Instructions: The following information is given to patients seen in the emergency department who are being discharged to home. This information is to outline your options for follow-up care. We provide all patients seen in our emergency department with a follow-up referral. The need for follow-up, as well as the timing and circumstances, are variable d epending upon the specifics of your emergency department visit. If you don't have a primary care physician on staff, we will provide you with a referral. We always advise you to contact your personal physician following an emergency department visit to inform them of the circumstance of the visit and for follow-up with them and/or the need for any referrals to a consulting specialist. The emergency department will also refer you to a specialist when appropriate. This referral assures that you have the opportunity for follow-up care with a specialist. All of these measure are taken in an effort to provide you with optimal care, which includes your follow-up. Under all circumstances we always encourage you to contact your private physician who remains a resource for coordinating your care. When calling for follow-up care, please make the office aware that this follow-up is from your recent emergency room visit. If for any reason you are refused follow-up, please contact the [facility] Emergency Department at and asked to speak to the emergency department charge nurse. Please follow up with your primary care physician. If you do not have a primary care physician, see below: [facility] [address] [place] [id number] [facility] [address] [place] [id number] You were seen today for pain to your left side. You are found to have a urinary tract infection. The CAT scan did not show any obvious signs of kidney stones. We recommend you take the antibiotics that we will send you home with. If you continue to have pain fevers or worsening of your symptoms please return to the ED immediately. You can otherwise follow-up with your primary care physician. Sepsis Event Note (ED) - Evaluation Sepsis Screening Result: No Definite Risk <Usman Orlando - Last Filed: 01/11/21 07:52> Course - Vital Signs Last Recorded V/S: Last Vital Signs Temp 97.3 F 01/11/21 06:23 Pulse 67 01/11/21 06:23 Resp BP 114/78 01/11/21 06:23 Pulse Ox 100 01/11/21 06:23 - Orders/Labs/Meds Orders: Active Orders 24 hr Category Date Time Status CULTURE URINE [RM] Stat Lab 01/11/21 05:50 Received Labs: Laboratory Tests 01/11/21 01/11/21 01/11/21 Range/Units 05:50 05:50 06:59 WBC 5.16 (4.0-11.0) K/uL RBC 4.18 L (4.30-5.90) M/uL Hgb 13.1 (12.0-16.0) g/dL Hct 39.0 (36.0-46.0) % MCV 93.3 (80.0-98.0) fL MCH 31.3 (27.0-32.0) pg MCHC 33.6 (31.0-37.0) g/dL RDW Std Deviation 43.5 (28.0-62.0) fl RDW Coeff of Antonette 13 (11.0-15.0) % Plt Count 201 (150-400) K/uL MPV 11.40 (7.40-12.00) fL Neut % (Auto) 64.0 (48.0-80.0) % Lymph % (Auto) 27.3 (16.0-40.0) % Centre % (Auto) 8.1 (0.0-15.0) % Eos % (Auto) 0.4 (0.0-7.0) % Baso % (Auto) 0.2 (0.0-1.5) % Neut # (Auto) 3.3 (1.4-5.7) K/uL Lymph # (Auto) 1.4 (0.6-2.4) K/uL Centre # (Auto) 0.4 (0.0-0.8) K/uL Eos # (Auto) 0.0 (0.0-0.7) K/uL Baso # (Auto) 0.0 (0.0-0.1) K/uL Nucleated RBC % 0.0 /100WBC Nucleated RBCs # 0 K/uL Sodium (136-145) mmol/L Potassium (3.5-5.1) mmol/L Chloride (98-107) mmol/L Carbon Dioxide (21.0-32.0) mmol/L BUN (7.0-18.0) mg/dL Creatinine (0.6-1.0) mg/dL Est Cr Clr Drug Dosing mL/min Estimated GFR (MDRD) ml/min Glucose (74-106) mg/dL Calcium (8.5-10.1) mg/dL Urine Color YELLOW Urine Appearance CLOUDY Urine pH 6.0 (5.0-8.0) Ur Specific Hext 1.025 (1.001-1.035) Urine Protein 30 H (NEGATIVE) mg/dL Urine Glucose (UA) NEGATIVE (NEGATIVE) mg/dL Urine Ketones NEGATIVE (NEGATIVE) mg/dL Urine Occult Blood LARGE H (NEGATIVE) Urine Nitrite POSITIVE H (NEGATIVE) Urine Bilirubin NEGATIVE (NEGATIVE) Urine Urobilinogen 0.2 (<2.0) EU/dL Ur Leukocyte Esterase MODERATE H (NEGATIVE) Urine RBC 8-10 (0-2/HPF) Urine WBC 20-30 (0-5/HPF) Ur Epithelial Cells FEW (NONE-FEW) Amorphous Sediment LIGHT (NEGATIVE) Urine Bacteria 1+ H (NEGATIVE) Urine Mucus LIGHT (NONE-MOD) Urine HCG, Qual NEGATIVE (NEGATIVE) 01/11/21 Range/Units 06:59 WBC (4.0-11.0) K/uL RBC (4.30-5.90) M/uL Hgb (12.0-16.0) g/dL Hct (36.0-46.0) % MCV (80.0-98.0) fL MCH (27.0-32.0) pg MCHC (31.0-37.0) g/dL RDW Std Deviation (28.0-62.0) fl RDW Coeff of Antonette (11.0-15.0) % Plt Count (150-400) K/uL MPV (7.40-12.00) fL Neut % (Auto) (48.0-80.0) % Lymph % (Auto) (16.0-40.0) % Centre % (Auto) (0.0-15.0) % Eos % (Auto) (0.0-7.0) % Baso % (Auto) (0.0-1.5) % Neut # (Auto) (1.4-5.7) K/uL Lymph # (Auto) (0.6-2.4) K/uL Centre # (Auto) (0.0-0.8) K/uL Eos # (Auto) (0.0-0.7) K/uL Baso # (Auto) (0.0-0.1) K/uL Nucleated RBC % /100WBC Nucleated RBCs # K/uL Sodium 140 (136-145) mmol/L Potassium 3.8 (3.5-5.1) mmol/L Chloride 106 (98-107) mmol/L Carbon Dioxide 24.7 (21.0-32.0) mmol/L BUN 11 (7.0-18.0) mg/dL Creatinine 1.0 (0.6-1.0) mg/dL Est Cr Clr Drug Dosing 71.41 mL/min Estimated GFR (MDRD) > 60.0 ml/min Glucose 82 (74-106) mg/dL Calcium 7.9 L (8.5-10.1) mg/dL Urine Color Urine Appearance Urine pH (5.0-8.0) Ur Specific Hext (1.001-1.035) Urine Protein (NEGATIVE) mg/dL Urine Glucose (UA) (NEGATIVE) mg/dL Urine Ketones (NEGATIVE) mg/dL Urine Occult Blood (NEGATIVE) Urine Nitrite (NEGATIVE) Urine Bilirubin (NEGATIVE) Urine Urobilinogen (<2.0) EU/dL Ur Leukocyte Esterase (NEGATIVE) Urine RBC (0-2/HPF) Urine WBC (0-5/HPF) Ur Epithelial Cells (NONE-FEW) Amorphous Sediment (NEGATIVE) Urine Bacteria (NEGATIVE) Urine Mucus (NONE-MOD) Urine HCG, Qual (NEGATIVE) Meds: Medications Discontinued Medications Generic Name Dose Route Start Last Admin Trade Name Evelyn PRN Reason Stop Dose Admin Cephalexin 500 mg 01/11/21 06:32 01/11/21 07:23 Cephalexin 500 Mg Cap PO 01/11/21 06:33 500 mg ONETIME ONE Administration Ketorolac Tromethamine 15 mg 01/11/21 06:26 01/11/21 06:33 Ketorolac 15 Mg/Ml Sdv IVPUSH 01/11/21 06:27 Not Given ONETIME ONE Ketorolac Tromethamine 15 mg 01/11/21 06:31 01/11/21 07:21 Ketorolac 30 Mg/Ml Sdv IM 01/11/21 06:32 15 mg STAT STA Administration - Re-Assessments/Exams Free Text/Narrative Re-Assessment/Exam: 01/11/21 07:51 Patient was signed out to me by previous provider. Patient CAT scan returned and did not show any obvious stones. Patient on exam looks well is tolerating p.o. and pain is well controlled. We will send patient home with antibiotics. Patient also given strict return precautions. Departure - Departure Time of Disposition: 07:49 Condition: Good - Discharge Information *PRESCRIPTION DRUG MONITORING PROGRAM REVIEWED*: Not Applicable *COPY OF PRESCRIPTION DRUG MONITORING REPORT IN PATIENT ZEYNEP: Not Applicable Sepsis Event Note (ED) - Focused Exam Vital Signs: Vital Signs Temp Pulse BP Pulse Ox 01/11/21 06:23 97.3 F 67 114/78 100
[2021-01-11 07:19] LABS: BLOOD UREA NITROGEN,BUN 11 mg/dL (7.0-18.0); CARBON DIOXIDE,CO2 24.7 mmol/L (21.0-32.0); CHLORIDE,CL 106 mmol/L (98-107); GLUCOSE RANDOM 82 mg/dL (74-106); POTASSIUM,K 3.8 mmol/L (3.5-5.1); SODIUM,NA 140 mmol/L (136-145)
--- NOTE | 2021-01-11 07:28 | CT ---
Indication: Left flank pain Technique: Volumetric multidetector CT images of the abdomen and pelvis were without the administration of intravenous contrast. Comparison: None available. Findings: The lung bases are clear. The liver is normal in attenuation without intrahepatic biliary ductal dilatation. The gallbladder is unremarkable without evidence of radiopaque calculus. There is no significant common biliary ductal dilatation or abrupt cut off. The spleen is normal in attenuation and size. The stomach and duodenum are grossly unremarkable. The pancreas is normal in attenuation without significant atrophy. The adrenal glands are unremarkable. There is demonstration of cystic change within the left kidney. There is questionable mild prominence of the left collecting system without evidence of definite distal obstructing calculus. Multiple calcified phleboliths are seen within the pelvis. There is moderate to severe stool seen throughout the colon with distal colonic diverticulosis without evidence of diverticulitis. The appendix is unremarkable. There is no significant mesenteric, retroperitoneal, or pelvic sidewall lymph nodes. The aorta is nonaneurysmal. There is no significant atherosclerotic disease appreciated. The solid pelvic viscera are grossly unremarkable. There is no free fluid or free air. The anterior abdominal wall is intact without significant hernias. The lumbar vertebral body heights are grossly maintained in satisfactory alignment without evidence of displaced fracture, lytic or blastic lesion. Impression: Mild prominence of the proximal left collecting system without evidence of obvious obstructing radiopaque calculus. No definite acute intra-abdominal abnormalities are appreciated. Stable cystic change of the left kidney. Please note that all CT scans at this facility use dose modulation, iterative reconstruction, and/or weight-based dosing when appropriate to reduce radiation dose to as low as reasonably achievable. Dictated by Kristopher Gaviria MD @ 01/11/2021 7:27:[address] Kristopher Gaviria @ Jan 11 2021 7:27AM
== END 2021-01-11 08:03 | disposition home or self-care (01) ==
LOC: MW.ED 05:47
DX: N39.0 Urinary tract infection, site not specified (principal)
CPT/HCPCS: 36415; 74176; 80048; 81001; 81025; 85025; 87086; 87088; 87186; 96372; 99284; A9270; J1885; 99283

== ENCOUNTER 2021-08-15 09:56 | Emergency (ER) | payer BC, OTHER ==
--- NOTE | 2021-08-15 10:06 | EDM.PDOC ---
ED HPI GENERAL MEDICAL PROBLEM - General Chief Complaint: Fever Stated Complaint: FEVER, CHILLS,LIGHT HEADED Time Seen by Provider: 08/15/21 09:57 Source of Information: Reports: Patient History Limitations: Reports: No Limitations - History of Present Illness INITIAL COMMENTS - FREE TEXT/NARRATIVE: HISTORY AND PHYSICAL: History of present illness: Patient is a 41-year-old G5, P3 female who presents emergency room today with concern of possible miscarriage. Patient states that her last menstrual cycle at the end of July was strange and she had dark blood. Patient states that she decided to take a test about 5 days ago and states that it was a faint positive. Patient states that she has stopped bleeding 3 days ago but has continued lower abdominal pain/cramping. Patient states that she did have a prior miscarriage 1 year ago that required a D&C procedure and states that she also had similar symptoms at that time. Patient denies fever, chills, chest pain, shortness of breath, or cough. Denies headache, neck stiff ness, change in vision, syncope, or near syncope. Denies nausea, vomiting, diarrhea, constipation, or dysuria. Has not noted any blood in urine or stool. Patient has been eating and drinking appropriately. Review of systems: As per history of present illness and below otherwise all systems reviewed and negative. Past medical history: As per history of present illness and as reviewed below otherwise noncontributory. Surgical history: As per history of present illness and as reviewed below otherwise noncontributory. Social history: See social history for further information Family history: As per history of present illness and as reviewed below otherwise noncontributory. Physical exam: General: Patient is alert, oriented, and in no acute distress. Patient sitting comfortably on exam table. Vitals stable and reviewed by me. HEENT: Atraumatic, normocephalic, pupils equal and reactive bilaterally, negative for conjunctival pallor or scleral icterus, mucous membranes moist, throat clear, neck supple, nontender, trachea midline. No drooling or trismus noted. No meningeal signs. No hot potato voice noted. Lungs: Clear to auscultation, breath sounds equal bilaterally, chest nontender. Heart: S1S2, regular rate and rhythm without overt murmur Abdomen: Soft, nondistended, non tender . Negative for masses or hep atosplenomegaly. Negative for costovertebral tenderness. Pelvis: Stable nontender. Genitourinary: Deferred. Rectal: Deferred. Skin: Intact, warm, dry. No lesions or rashes noted. Extremities: Atraumatic, negative for cords or calf pain. Neurovascular unremarkable. Neuro: Awake, alert, oriented. Cranial nerves II through XII unremarkable. Cerebellum unremarkable. Motor and sensory unremarkable throughout. Exam nonfocal. Medical Decision Making: Patient is a 41-year-old female resents emergency room today with concern of miscarriage as she has had a positive test at home, followed by some abnormal bleeding, which has now resolved x3 days. Upon arrival to the ED, patient is vitally stable and well-appearing. Will obtain lab work, Rh/blood type, hCG quant, and transvaginal ultrasound. CBC does show mild leukopenia with white blood cells at 3.09, red blood cells mildly decreased at 4.09. Otherwise mild derangements of CBC unremarkable. CMP does show an isolated elevation of bilirubin at 1.3, otherwise CMP mild derangements are unremarkable. hCG quant is positive, but is rather low at 18. Blood type is O+ so patient does not require RhoGam Transvaginal ultrasound does show no intrauterine or extrauterine gestational sac identified. This may be due to early stage of . There is no free fluid. Small uterine fibroids. Upon reevaluation of patient, she remains vitally stable and comfortable throughout stay in ED. I did discuss patient's clinical course today with uncertainty of possible early , cannot rule out ectopic , or possible miscarriage at this time. I did discuss with patient to closely follow-up with an [facility] [facility] provider. Patient states that she plans to follow-up with [facility] and will call them today to set up a close appointment time. All signs and symptoms that would prompt return to the ED thoroughly discussed with patient. Discussed the importance for close follow-up with an OBGYN provider. Voices understanding and is agreeable to plan of care. Denies any further questions or concerns at this time. Diagnostics: COVID/Flu, CBC, CMP, UA, HcgQuant, Rh/Blood type Therapeutics: None Prescription: None Impression: Abdominal cramping Positive test Plan: 1. Please start and/or continue to take your vitamin with folic acid once daily. 2. Pelvic rest until cleared by your OBGYN (no tampons, sex, etc...) 3. Tylenol as needed for pain management. This is safe to use in . 4. Follow up with your [facility] in the next 1-2 days. Return to the ED as needed and as discussed. Definitive disposition and diagnosis as appropriate pending reevaluation and review of above. - Related Data Allergies Allergy/AdvReac Type Severity Reaction Status Date / Time No Known Allergies Allergy Verified 08/15/21 10:04 Home Meds: Home Meds . [No Known Home Meds] 08/15/21 [History] Past Medical History - Past Health History Medical/Surgical History: Denies Medical/Surgical History HEENT History: Reports: None Cardiovascular History: Reports: None Respiratory History: Reports: None Gastrointestinal History: Reports: None Genitourinary History: Reports: None [employer] History: Reports: None Musculoskeletal History: Reports: Arthritis Neurological History: Reports: None Psychiatric History: Reports: None Endocrine/Metabolic History: Reports: None Dermatologic History: Reports: None - Infectious Disease History Infectious Disease History: Reports: Chicken Pox - Past Surgical History Head Surgeries/Procedures: Reports: None HEENT Surgical History: Reports: None Cardiovascular Surgical History: Reports: None Respiratory Surgical History: Reports: None Female Surgical History: Reports: None Endocrine Surgical History: Reports: None Neurological Surgical History: Reports: None Musculoskeletal Surgical History: Reports: None, Other (See Below) Other Musculoskeletal Surgeries/Procedures:: left knee surgery Dermatological Surgical History: Reports: None Social & Family History - Family History Cardiac: Reports: None Respiratory: Reports: None - Caffeine Use Caffeine Use: Reports: None ED ROS GENERAL - Review of Systems Review Of Systems: Comprehensive ROS is negative, except as noted in HPI. ED EXAM, GENERAL - Physical Exam Exam: See Below (see dictation) Course - Vital Signs Last Recorded V/S: Last Vital Signs Temp 97.8 F 08/15/21 10:05 Pulse 79 08/15/21 12:58 Resp 16 08/15/21 12:58 BP 106/74 08/15/21 12:58 Pulse Ox 99 08/15/21 12:58 - Orders/Labs/Meds Labs: Laboratory Tests 08/15/21 08/15/21 08/15/21 Range/Units 10:28 10:28 10:28 WBC 3.09 L (4.0-11.0) K/uL RBC 4.09 L (4.30-5.90) M/uL Hgb 12.9 (12.0-16.0) g/dL Hct 37.8 (36.0-46.0) % MCV 92.4 (80.0-98.0) fL MCH 31.5 (27.0-32.0) pg MCHC 34.1 (31.0-37.0) g/dL RDW Std Deviation 44.5 (28.0-62.0) fl RDW Coeff of Antonette 13 (11.0-15.0) % Plt Count 191 (150-400) K/uL MPV 10.60 (7.40-12.00) fL Neut % (Auto) 33.1 L (48.0-80.0) % Lymph % (Auto) 56.6 H (16.0-40.0) % [place] % (Auto) 9.7 (0.0-15.0) % Eos % (Auto) 0.3 (0.0-7.0) % Baso % (Auto) 0.3 (0.0-1.5) % Neut # (Auto) 1.0 L (1.4-5.7) K/uL Lymph # (Auto) 1.8 (0.6-2.4) K/uL [place] # (Auto) 0.3 (0.0-0.8) K/uL Eos # (Auto) 0.0 (0.0-0.7) K/uL Baso # (Auto) 0.0 (0.0-0.1) K/uL Nucleated RBC % 0.0 /100WBC Nucleated RBCs # 0 K/uL Sodium 140 (136-145) mmol/L Potassium 3.7 (3.5-5.1) mmol/L Chloride 106 (98-107) mmol/L Carbon Dioxide 25.8 (21.0-32.0) mmol/L BUN 6 L (7.0-18.0) mg/dL Creatinine 0.7 (0.6-1.0) mg/dL Est Cr Clr Drug Dosing 101.01 mL/min Estimated GFR (MDRD) > 60.0 ml/min Glucose 83 (74-106) mg/dL Calcium 8.0 L (8.5-10.1) mg/dL Total Bilirubin 1.3 H (0.2-1.0) mg/dL AST 22 (15-37) IU/L ALT 28 (14-63) IU/L Alkaline Phosphatase 43 L (46-116) U/L Total Protein 7.1 (6.4-8.2) g/dL Albumin 3.4 (3.4-5.0) g/dL Globulin 3.7 (2.6-4.0) g/dL Albumin/Globulin Ratio 0.9 (0.9-1.6) HCG, Quant 18.0 mIU/mL Blood Type O POSITIVE Departure - Departure Time of Disposition: 12:40 Disposition: Home, Self-Care 01 Clinical Impression: Positive test, Abdominal cramping - Discharge Information Referrals: PCP,None [Primary Care Provider] - Forms: ED Department Discharge Additional Instructions: The following information is given to patients seen in the emergency department who are being discharged to home. This information is to outline your options for follow-up care. We provide all patients seen in our emergency department wi th a follow-up referral. The need for follow-up, as well as the timing and circumstances, are variable depending upon the specifics of your emergency department visit. If you don't have a primary care physician on staff, we will provide you with a referral. We always advise you to contact your personal physician following an emergency department visit to inform them of the circumstance of the visit and for follow-up with them and/or the need for any referrals to a consulting specialist. The emergency department will also refer you to a specialist when appropriate. This referral assures that you have the opportunity for follow-up care with a specialist. All of these measure are taken in an effort to provide you with optimal care, which includes your follow-up. Under all circumstances we always encourage you to contact your private physician who remains a resource for coordinating your care. When calling for follow-up care, please make the office aware that this follow-up is from your recent emergency room visit. If for any reason you are refused follow-up, please contact the [facility] Emergency Department at and asked to speak to the emergency department charge nurse. [facility] [address] [place] [phone] 1. Please start and/or continue to take your vitamin with folic acid once daily. 2. Pelvic rest until cleared by your OBGYN (no tampons, sex, etc...) 3. Tylenol as needed for pain management. This is safe to use in . 4. Follow up with your [facility] in the next 1-2 days. Return to the ED as needed and as discussed. Sepsis Event Note (ED) - Focused Exam Vital Signs: Vital Signs Temp Pulse Resp BP Pulse Ox 08/15/21 12:58 79 16 106/74 99 08/15/21 12:02 66 112/73 99 08/15/21 11:30 81 110/72 97 08/15/21 10:31 68 118/84 98 08/15/21 10:05 97.8 F 66 16 118/77 100
[2021-08-15 11:09] LABS: BLOOD UREA NITROGEN,BUN 6 mg/dL (7.0-18.0); CARBON DIOXIDE,CO2 25.8 mmol/L (21.0-32.0); CHLORIDE,CL 106 mmol/L (98-107); GLUCOSE RANDOM 83 mg/dL (74-106); POTASSIUM,K 3.7 mmol/L (3.5-5.1); SODIUM,NA 140 mmol/L (136-145)
--- NOTE | 2021-08-15 12:35 | US ---
INDICATION: Pain and bleeding, 4 weeks, 2 days gestation by LMP, hCG is 18 TECHNIQUE: Ultrasound OB pelvis transvaginal. Real-time byrne-scale imaging of the pelvis was performed. COMPARISON: None FINDINGS: Sonographic imaging demonstrates no intrauterine or extrauterine gestation. Endometrium measures 6 mm in thickness. The ovaries and uterus are of normal size. Blood flow is demonstrated in both ovaries. There is a 3.0 x 2.1 cm fibroid in the left uterus and a 1.3 cm fibroid in the right uterus. There are no suspicious fluid collections noted in the cul-de-sac. IMPRESSION: No intrauterine or extrauterine gestation identified. This may be due to early stage of . There is no free fluid. Small uterine fibroids. Dictated by Jacquie Norris MD @ 08/15/2021 12:33:26 PM (Electronically Signed)
[2021-08-15 12:58] VITALS: BP 106/74; PULSE 79
== END 2021-08-15 12:59 | disposition home or self-care (01) ==
LOC: MW.ED 09:56
DX: O99.891 Other specified diseases and conditions complicating pregnancy (principal); R10.9 Unspecified abdominal pain; Z3A.00 Weeks of gestation of pregnancy not specified
CPT/HCPCS: 36415; 76801; 76801-26; 80053; 84702; 85025; 86900; 86901; 99284-25

== ENCOUNTER 2023-06-16 01:04 | Emergency (ER) | payer BC ==
[2023-06-16] MEDS ORDERED: Famotidine 20 MG/2 ML SDV IVPUSH ONE (01:11)
[2023-06-16] MEDS ORDERED: Sodium Chloride 0.9% 10 ML Syringe FLUSH PRN (01:11)
[2023-06-16] MEDS ORDERED: Sodium Chloride 0.9% 2.5 ML Syringe FLUSH PRN (01:11)
[2023-06-16] MEDS ORDERED: Sodium Chloride 0.9% 1,000 ML IV ONE (01:11)
[2023-06-16 01:24] LABS: BASOPHILS ABSOLUTE AUTO 0.03 K/uL (0.00-0.20); BASOPHILS PERCENT AUTO 0.5 % (0.0-1.0); EOSINOPHILS ABSOLUTE AUTO 0.04 K/uL (0.00-0.45); EOSINOPHILS PERCENT AUTO 0.7 % (0.0-6.0); HEMATOCRIT 38.6 % (37.0-47.0); HEMOGLOBIN 13.4 g/dL (12.0-16.0); LYMPHOCYTES ABSOLUTE AUTO 3.34 K/uL (1.00-4.80); LYMPHOCYTES PERCENT AUTO 59.1 % (24.0-44.0); MEAN CORPUSCULAR HEMOGLOBIN 31.1 pg (28.0-32.0); MEAN CORPUSCULAR HGB CONC 34.7 g/dL (32.0-36.0); MEAN CORPUSCULAR VOLUME 89.6 fL (83.0-99.0); MONOCYTES PERCENT AUTO 8.8 % (0.0-8.0); NEUTROPHILS ABSOLUTE AUTO 1.7 K/uL (1.8-7.7); NEUTROPHILS PERCENT AUTO 30.9 % (41.0-71.0); PLATELET COUNT,PLT 174 K/uL (150-400); RED BLOOD CELL COUNT 4.31 M/uL (4.10-5.30); WHITE BLOOD CELL COUNT,WBC 5.65 K/uL (3.9-11.3)
[2023-06-16 01:48] LABS: A/G RATIO 1.2 (0.9-1.6); ALANINE AMINOTRANSFERASE,ALT 57 IU/L (14-63); ALBUMIN 4.2 g/dL (3.4-5.0); ALKALINE PHOSPHATASE 40 U/L (46-116); ASPARTATE AMNIOTRANSFERASE,AST 32 IU/L (15-37); BLOOD UREA NITROGEN,BUN 8 mg/dL (7.0-18.0); CALCIUM 8.7 mg/dL (8.5-10.1); CARBON DIOXIDE,CO2 21.7 mmol/L (21.0-32.0); GLUCOSE RANDOM 115 mg/dL (74-106); LIPASE 38 U/L (16-77); PROTEIN TOTAL,TP 7.6 g/dL (6.4-8.2); SODIUM,NA 140 mmol/L (136-145)
[2023-06-16 01:49] LABS: ESTIMATED GFR 73 mL/min (>60)
[2023-06-16 01:54] LABS: CHLORIDE,CL 103 mmol/L (98-107)
[2023-06-16 01:58] LABS: POTASSIUM,K 2.3 mmol/L (3.5-5.1)
[2023-06-16] MEDS: Potassium Chloride 100 ML IV SCH ×3 (02:08→05:11)
[2023-06-16 02:16] LABS: APPEARANCE,URINE CLEAR; BILIRUBIN,URINE NEGATIVE (NEGATIVE); COLOR,URINE YELLOW; GLUCOSE,URINE NEGATIVE (NEGATIVE); KETONES,URINE 40 mg/dL (NEGATIVE); LEUKOCYTE ESTERASE,URINE NEGATIVE (NEGATIVE); NITRITE,URINE NEGATIVE (NEGATIVE); OCCULT BLOOD,URINE NEGATIVE (NEGATIVE); PH,URINE 8.5 (5.0-8.0); PROTEIN,URINE 30 mg/dL (NEGATIVE)
[2023-06-16 02:20] LABS: BACTERIA,URINE FEW (NEGATIVE); MUCUS,URINE LIGHT (NONE-MOD); RBC,URINE 0-2 (0-2/HPF); SQUAMOUS EPITHELIAL CELLS,UR OCCASIONAL; WBC,URINE 0-2 (0-5/HPF)
[2023-06-16] MEDS ORDERED: Iopamidol 755 MG/ML 500 ML Multipack Bottle IVPUSH ONE (02:28)
[2023-06-16] MEDS ORDERED: Dicyclomine 10 MG Cap PO ONE (05:25)
[2023-06-16] MEDS ORDERED: Magnesium Oxide 400 MG Tab PO ONE (05:25)
[2023-06-16] MEDS ORDERED: Potassium Chloride 10% 20 MEQ/15 ML Soln 15 ML UD Cup PO ONE (05:25)
[2023-06-16 05:37] VITALS: BP 118/88; PULSE 72
== END 2023-06-16 05:45 | disposition home or self-care (01) ==
LOC: MW.ED 01:04
DX: R10.32 Left lower quadrant pain (principal); E87.6 Hypokalemia; E83.42 Hypomagnesemia; Z79.899 Other long term (current) drug therapy
CPT/HCPCS: 36415; 73630; 74177; 80053; 81001; 83690; 83735; 84484; 84703; 85025; 85379; 93005; 96361; 96374; 99285; A9270; J3480; J3490; J7030; Q9967; 93010; 99284